=== PATIENT | female | born 1965 | race Caucasian/White ===

== ENCOUNTER 2020-02-19 17:14 | Emergency (ER) | payer OTHER ==
[~2020-02-19] VITALS: Ht 157.5 cm; Wt 122.9 kg
[2020-02-19 17:46] VITALS: Ht 157.5 cm; Wt 122.9 kg
[2020-02-19 21:21] VITALS: BP 138/76
== END 2020-02-19 20:50 | disposition home or self-care (01) ==
LOC: ED 17:14
DX: S53.194A Other dislocation of right ulnohumeral joint, initial encounter (principal); S42.291A Other displaced fracture of upper end of right humerus, initial encounter for closed fracture; R07.89 Other chest pain; I10 Essential (primary) hypertension; E11.9 Type 2 diabetes mellitus without complications; Z88.0 Allergy status to penicillin; Z91.040 Latex allergy status; W18.39XA Other fall on same level, initial encounter; Y93.K1 Activity, walking an animal; Y92.89 Other specified places as the place of occurrence of the external cause; Y99.8 Other external cause status
CPT/HCPCS: J1885; Q0092